=== PATIENT | male | born 1980 | race Two or more races ===

== ENCOUNTER 2021-11-29 20:42 | Emergency (ER) | payer SELFPAY ==
[~2021-11-29] VITALS: Ht 180.3 cm; Wt 127.0 kg
[2021-11-30] MEDS ORDERED: MORPHINE SULFATE 4 MG/ML SYR/VIAL IM ONE (02:00)
[2021-11-30] MEDS ORDERED: cefTRIAXone SOD 1,000 MG VL IM ONE (03:15)
[2021-11-30] MEDS ORDERED: IBUP800T27 PO (03:51)
[2021-11-30] MEDS ORDERED: DOXY-286 PO (03:51)
[2021-11-30 04:21] VITALS: BP 135/84
== END 2021-11-30 04:38 | disposition home or self-care (01) ==
LOC: ER 20:42
DX: N43.3 Hydrocele, unspecified (principal); N45.1 Epididymitis
CPT/HCPCS: 76870; 96372; 99284; J0696; J2270

== ENCOUNTER 2023-12-06 05:27 | Emergency (ER) | payer OTHER ==
[~2023-12-06] VITALS: Ht 180.3 cm; Wt 134.6 kg
[~2023-12-06 05:27] MED LIST: DOXY-286 PO; IBUP-1456 PO
[2023-12-06 05:48] VITALS: TEMP 98
[2023-12-06] MEDS: cloNIDine HCL 0.1 MG TAB PO ONE (06:16)
[2023-12-06] MEDS: KETOROLAC TROMETH 60MG/2ML VIAL IM ONE (06:17)
[2023-12-06 07:02] VITALS: BP 138/99
[2023-12-06 07:31] VITALS: PULSE 69; RESP 16; O2SAT 95
[2023-12-06] MEDS ORDERED: LIDO5CRE14 EX (07:33)
[2023-12-06] MEDS ORDERED: BACL10TA PO (07:33)
== END 2023-12-06 07:45 | disposition home or self-care (01) ==
LOC: ER 05:31
DX: M72.2 Plantar fascial fibromatosis (principal); M79.671 Pain in right foot
CPT/HCPCS: 73630; 96372; 99283; J1885